=== PATIENT | male | born 1960 | race Caucasian/White ===

== ENCOUNTER 2017-03-19 17:11 | Emergency (ER) | payer BC ==
[2017-03-19 17:38] VITALS: BP 131/64
--- NOTE | 2017-03-19 17:40 | UC ---
Skin Complaint HPI - HPI Summary HPI Summary: bee sting right inner thigh x 2 days the area is red, itchy, mild tenderness pt. is concern about cellulites - History of Current Complaint Chief Complaint: UCSkin Time Seen by Provider: 03/19/17 17:32 Stated Complaint: INSECT BITE Hx Obtained From: Patient Onset/Duration: Sudden Onset, Lasting Days - 2, Still Present Timing: Constant Onset Severity: Moderate Current Severity: Moderate Location: Other - right inner thigh Character: Swelling, Pruritus, Redness Aggravating: Nothing Alleviating: Nothing Associated Signs & Symptoms: Positive: Negative. Negative: Vomiting, Numbness, Weakness, Fever, Chills, Cough, Wheezing, Chest Pain, Throat Tightening - Allergy/Home Medications Allergies/Adverse Reactions: Allergies Allergy/AdvReac Type Severity Reaction Status Date / Time No Known Allergies Allergy Verified 03/19/17 17:24 Review of Systems Constitutional: Negative Skin: Rash Eyes: Negative ENT: Negative Respiratory: Negative All Other Systems Reviewed And Are Negative: Yes PMH/Surg Hx/FS Hx/Imm Hx Previously Healthy: Yes - Surgical History Surgical History: Yes Surgery Procedure, Year, and Place: appy. ex lap abd. - Family History Known Family History: Negative: Diabetes - Social History Alcohol Use: Occasionally Substance Use Type: None Smoking Status (MU): Never Smoked Tobacco Physical Exam Triage Information Reviewed: Yes Appearance: Well-Appearing, No Pain Distress, Well-Nourished Vital Signs: Initial Vital Signs Temp 99 F 03/19/17 17:25 Pulse 63 03/19/17 17:25 Resp 18 03/19/17 17:25 BP 131/64 03/19/17 17:25 Pulse Ox 100 03/19/17 17:25 Vital Signs Reviewed: Yes Eyes: Positive: Conjunctiva Clear ENT: Positive: Normal ENT inspection, Hearing grossly normal, Pharynx normal Neck: Positive: Supple, Nontender, No Lymphadenopathy Respiratory: Positive: Chest non-tender, Lungs clear, Normal breath sounds Cardiovascular: Positive: RRR, No Murmur, Pulses Normal Skin: Positive: rashes - macular rash right inner thigh at the sting site, no tenderness, no swelling Course/Dx - Diagnoses Provider Diagnoses: bee sting right thigh Discharge - Discharge Plan Condition: Stable Disposition: HOME Patient Education Materials: Insect Bite or Sting (ED) Referrals: Boris Mendoza MD [Primary Care Provider] - If Needed Additional Instructions: cool compresses , Benadryl 25 mg every 6 hrs as needed Ibuprofen as needed for pain follow up as needed
== END 2017-03-19 17:43 | disposition home or self-care (01) ==
LOC: UCCORT 17:11
DX: T63.441A Toxic effect of venom of bees, accidental (unintentional), initial encounter (principal)
CPT/HCPCS: 99211; G0463